=== PATIENT | female | born 1990 | race Caucasian/White ===

== ENCOUNTER 2020-03-17 23:46 | Inpatient (IN) ==
[2020-03-18] MEDS ORDERED: ONDANSETRON 4 MG/2 ML VIAL IV PRN (00:34)
[2020-03-18] MEDS ORDERED: LACTATED RINGERS 500 ML IV PRN (00:34)
[2020-03-18] MEDS ORDERED: BUTORPHANOL 1 MG/ML VIAL IV PRN (00:48)
[2020-03-18] MEDS ORDERED: MEPERIDINE 50 MG/1 ML VIAL IV PRN (00:48)
[2020-03-18] MEDS ORDERED: LACTATED RINGERS 1,000 ML IV SCH ×2 (01:00→08:00)
[2020-03-18 01:37] LABS: Basophils # 0.1 10*3/uL (0.0-0.2); Basophils % 0.5 % (0.0-0.8); Eosinophils # 0.3 10*3/uL (0.0-0.87); Eosinophils % 1.5 % (0.00-10.9); Hemoglobin 10.1 GM/DL (12.0-16.0); Immature Granulocytes % 2.8 %; Immature Granulocytes Absolute 0.52 #; Lymphocytes # 2.8 10*3/uL (1.4-4.0); Lymphocytes % 15.1 % (21.3-54.2); Mean Corpuscular HGB Conc 32.6 GM/DL (32-36); Mean Corpuscular Volume 84.7 FL (87-102); Mean Platelet Volume 10.8 FL (9.6-12.0); Monocytes % 6.7 % (1.7-12.7); Neutrophils % 73.4 % (38.7-73.9); Platelet Count 338 T/CUMM (130-400); Red Blood Count 3.66 MC/CUMM (3.8-5.5); Red Cell Distribution Width 13.6 % (9.3-17.3); White Blood Count 18.4 T/CUMM (4-12)
[2020-03-18 01:52] LABS: Alanine Aminotransferase 37 U/L (13-56); Albumin 2.2 G/DL (3.4-5.0); Alkaline Phosphatase 287 U/L (45-117); Aspartate Amino Transferase 18 U/L (0-37); Bilirubin,Total < 0.39 MG/DL (0.2-1.0); Blood Urea Nitrogen 11 MG/DL (7-18); Calcium 8.8 MG/DL (8.5-10.1); Carbon Dioxide 21 MMOL/L (21-32); Estimated Glom Filtration Rate 135 ML/MIN; Glucose 91 MG/DL (74-106); Osmolality,Calculated 268.1 MOS/KG (273-304); Potassium 3.5 MMOL/L (3.5-5.1); Sodium 135 MMOL/L (136-145); Total Protein 6.6 G/DL (6.4-8.3)
[2020-03-18 04:05] LABS: Eosinophils 1 % (0-10); Lymphocytes 16 % (20-55); Platelet Estimate Increased; Polychromasia Few; Segmented Neutrophils 78 % (50-85); Total Cells Counted 100
[2020-03-18 04:06] LABS: Microcytosis 1+
[2020-03-18 04:08] LABS: Stomatocytes Slight
[2020-03-18 04:09] LABS: Hypochromasia Slight
[2020-03-18] MEDS ORDERED: LACTATED RINGERS 1,000 ML IV ONE (07:51)
[2020-03-18] MEDS ORDERED: ePHEDrine 50 MG/ML VIAL IV PRN (07:51)
[2020-03-18] MEDS ORDERED: FAMOTIDINE 20 MG/2 ML VIAL IV ONE (07:51)
[2020-03-18] MEDS ORDERED: CITRIC ACID/SODIUM CITRATE 30 ML UDCUP PO ONE (07:51)
[2020-03-18] MEDS ORDERED: NALOXONE 0.4 MG/ML VIAL IV PRN (07:52)
[2020-03-18] MEDS ORDERED: PROMETHAZINE 25 MG/1 ML VIAL IM ONE (07:52)
[2020-03-18] MEDS ORDERED: diphenhydrAMINE 50 MG/1 ML VIAL IV PRN ×2 (07:52)
[2020-03-18] MEDS ORDERED: fentaNYL 2 MCG/ROPIV 0.2% EPID 100 ML EPIDURAL SCH (08:00)
[2020-03-18 10:52] LABS: Bilirubin,Urine Negative (Negative); Blood, Urine Negative (Negative); Glucose,Urine (UA) Negative (Negative); Ketones,Urine Negative (Negative); Nitrite,Urine Negative (Negative); Protein,Urine Negative; Urine Appearance Clear (Clear); Urine Color Yellow (Yellow); Urine Specific Gravity 1.005 (1.001-1.035); Urine Urobilinogen 0.2 EU/DL (0.2-1.0)
[2020-03-18] MEDS ORDERED: miSOPROStoL 200 MCG TABLET ONE (11:00)
[2020-03-18] MEDS ORDERED: OXYTOCIN/LR 20 UNIT/1,000 ML BAG IV ONE ×3 (11:00→15:18)
[2020-03-18] MEDS ORDERED: METHYLERGONOVINE 0.2 MG/1 ML AMP ONE (11:01)
[2020-03-18 12:08] LABS: Cord Arterial Blood HCO3 25.2 MMOL/L
[2020-03-18 12:10] LABS: Cord Venous Blood PCO2 39.7 MMHG; Cord Venous Blood PO2 35.7
[2020-03-18] MEDS ORDERED: IBUPROFEN 800 MG TABLET PO ONE (14:40)
[2020-03-18] MEDS ORDERED: ACETAMINOPHEN 325 MG TABLET PO ONE (14:43)
[2020-03-18] MEDS ORDERED: RHO(D) IMMUNE GLOBULIN 300 MCG SYRINGE IM ONE (15:18)
[2020-03-18] MEDS ORDERED: MEASLES/MUMPS/RUBELLA VACCINE 0.5 ML VIAL SUBCUT ONE (15:18)
[2020-03-18] MEDS ORDERED: BENZOCAINE 20%/MENTHOL 0.5% SPRAY 56 GM CAN TOP PRN (15:18)
[2020-03-18] MEDS ORDERED: DIPH/TET/ACEL PERT BOOSTER VACCINE 0.5 ML VIAL IM ONE (15:18)
[2020-03-18] MEDS ORDERED: ACETAMINOPHEN 325 MG TABLET PO PRN (15:18)
[2020-03-18] MEDS ORDERED: WITCH HAZEL PADS 100/JAR TOP PRN (15:18)
[2020-03-18] MEDS ORDERED: LANOLIN 50% CREAM 0.3 OZ TUBE TOP PRN (15:18)
[2020-03-18] MEDS ORDERED: BISACODYL 10 MG SUPP RECTAL PRN (15:18)
[2020-03-18] MEDS ORDERED: HYDROCORTISONE 2.5% RECTAL CREAM 30 GM TUBE TOP PRN (15:18)
[2020-03-18] MEDS: DOCUSATE SODIUM 100 MG CAPSULE PO SCH (21:25)
[2020-03-18] MEDS: IBUPROFEN 800 MG TABLET PO PRN (21:30)
[2020-03-19] MEDS: IBUPROFEN 800 MG TABLET PO PRN ×3 (06:13→19:34)
[2020-03-19 06:17] LABS: Basophils # 0.1 10*3/uL (0.0-0.2); Basophils % 0.5 % (0.0-0.8); Eosinophils # 0.3 10*3/uL (0.0-0.87); Eosinophils % 1.7 % (0.00-10.9); Hematocrit 29.9 VOL% (35.7-47.0); Hemoglobin 9.5 GM/DL (12.0-16.0); Immature Granulocytes % 2.1 %; Immature Granulocytes Absolute 0.32 #; Lymphocytes # 2.5 10*3/uL (1.4-4.0); Lymphocytes % 16.4 % (21.3-54.2); Mean Corpuscular HGB Conc 31.8 GM/DL (32-36); Mean Corpuscular Volume 84.9 FL (87-102); Mean Platelet Volume 10.5 FL (9.6-12.0); Monocytes % 8.2 % (1.7-12.7); Neutrophils % 71.1 % (38.7-73.9); Platelet Count 301 T/CUMM (130-400); Red Blood Count 3.52 MC/CUMM (3.8-5.5); Red Cell Distribution Width 13.8 % (9.3-17.3)
[2020-03-19] MEDS: DOCUSATE SODIUM 100 MG CAPSULE PO SCH ×2 (08:56→21:06)
[2020-03-19] MEDS: oxyCODONE/ACETAMINOPHEN 5-325 MG TABLET PO PRN ×2 (15:48→22:14)
[2020-03-19] MEDS: FERROUS SULFATE 325 MG TABLET PO SCH (21:06)
[2020-03-20] MEDS: oxyCODONE/ACETAMINOPHEN 5-325 MG TABLET PO PRN ×2 (03:49→10:18)
[2020-03-20 07:19] VITALS: BP 104/62
[2020-03-20] MEDS: IBUPROFEN 800 MG TABLET PO PRN (08:19)
[2020-03-20] MEDS: DOCUSATE SODIUM 100 MG CAPSULE PO SCH (08:19)
[2020-03-20] MEDS: FERROUS SULFATE 325 MG TABLET PO SCH (08:19)
== END 2020-03-20 11:50 | disposition home or self-care (01) | DRG 560 ==
LOC: N.LDOUT 23:46 → N.LD 23:48 → N.OB 03-18 15:12
PROVIDERS: ADMIT Obstetrics & Gynecology; ATTEND Obstetrics & Gynecology

== ENCOUNTER 2021-12-30 20:15 | Inpatient (IN) ==
[2021-12-30] MEDS ORDERED: ONDANSETRON 4 MG/2 ML VIAL IV PRN (23:26)
[2021-12-30] MEDS ORDERED: OXYTOCIN/LR 20 UNIT/1,000 ML BAG IV ONE (23:26)
[2021-12-30] MEDS ORDERED: TRANEXAMIC ACID 1,000 MG in SODIUM CHLORIDE 0.9% 100 ML IV PRN (23:26)
[2021-12-30] MEDS ORDERED: LACTATED RINGERS 1,000 ML IV ONE (23:26)
[2021-12-30] MEDS ORDERED: CARBOPROST TROMETHAMINE 250 MCG/ML AMP IM PRN (23:26)
[2021-12-30] MEDS ORDERED: METHYLERGONOVINE 0.2 MG/1 ML AMP IM PRN (23:26)
[2021-12-30] MEDS ORDERED: miSOPROStoL 200 MCG TABLET RECTAL PRN (23:26)
[2021-12-31 00:27] LABS: Alanine Aminotransferase 37 U/L (13-56); Albumin 2.4 G/DL (3.4-5.0); Alkaline Phosphatase 250 U/L (45-117); Aspartate Amino Transferase 21 U/L (0-37); Bilirubin,Total < 0.39 MG/DL (0.20-1.00); Blood Urea Nitrogen 14 MG/DL (7-18); Calcium 8.9 MG/DL (8.5-10.1); Carbon Dioxide 22 MMOL/L (21-32); Chloride 107 MMOL/L (98-107); Glucose 93 MG/DL (74-106); Potassium 3.6 MMOL/L (3.5-5.1); Sodium 136 MMOL/L (136-145); Total Protein 6.4 G/DL (6.4-8.2)
[2021-12-31 00:42] LABS: Basophils # 0.1 10*3/uL (0.0-0.2); Basophils % 0.5 % (0.0-0.8); Eosinophils # 0.3 10*3/uL (0.0-0.87); Eosinophils % 1.3 % (0.00-10.9); Hematocrit 30.1 VOL% (35.7-47.0); Hemoglobin 10.3 GM/DL (12.0-16.0); Immature Granulocytes % 3.2 %; Immature Granulocytes Absolute 0.72 #; Lymphocytes # 3.7 10*3/uL (1.4-4.0); Lymphocytes % 16.5 % (21.3-54.2); Mean Corpuscular HGB Conc 34.2 GM/DL (32-36); Mean Corpuscular Volume 87.2 FL (87-102); Monocytes # 1.5 10*3/uL (0.11-0.8); Monocytes % 6.6 % (1.7-12.7); Neutrophils % 71.9 % (38.7-73.9); Platelet Count 356 T/CUMM (130-400); Red Blood Count 3.45 MC/CUMM (3.8-5.5); Red Cell Distribution Width 12.5 % (9.3-17.3); White Blood Count 22.2 T/CUMM (4-12)
[2021-12-31 01:11] LABS: Eosinophils 1 % (0-10); Lymphocytes 14 % (20-55); Platelet Estimate Adequate; Total Cells Counted 100
[2021-12-31] MEDS: LACTATED RINGERS 1,000 ML IV SCH ×3 (02:29→09:44)
[2021-12-31] MEDS ORDERED: OXYTOCIN/LR 20 UNIT/1,000 ML BAG IV SCH (03:00)
[2021-12-31] MEDS ORDERED: BUTORPHANOL 2 MG/ML VIAL IV PRN (05:38)
[2021-12-31] MEDS ORDERED: PROMETHAZINE 25 MG/1 ML VIAL IM ONE (07:21)
[2021-12-31] MEDS ORDERED: FAMOTIDINE 20 MG/2 ML VIAL IV ONE (07:21)
[2021-12-31] MEDS ORDERED: hydrOXYzine HCL 25 MG/1 ML VIAL IM PRN (07:21)
[2021-12-31] MEDS ORDERED: CITRIC ACID/SODIUM CITRATE 30 ML UDCUP PO ONE (07:21)
[2021-12-31] MEDS ORDERED: ePHEDrine 50 MG/ML VIAL IV PRN (07:21)
[2021-12-31] MEDS ORDERED: diphenhydrAMINE 50 MG/1 ML VIAL IV PRN ×2 (07:21)
[2021-12-31] MEDS ORDERED: NALOXONE 0.4 MG/ML VIAL IV PRN (07:21)
[2021-12-31] MEDS ORDERED: fentaNYL 2 MCG/ROPIV 0.2% EPID 100 ML EPIDURAL SCH (07:30)
[2021-12-31 09:41] LABS: Bilirubin,Urine Negative (Negative); Blood, Urine Negative (Negative); Glucose,Urine (UA) Negative (Negative); Ketones,Urine Negative (Negative); Nitrite,Urine Negative (Negative); Protein,Urine Negative (Negative); RBC,Urine 1 /HPF (0-4); Squamous Epithelial Cell,Urine Occasional /HPF (0-10); Urine Appearance Clear (Clear); Urine Color Straw (Yellow); Urine Specific Gravity 1.015 (1.001-1.035); Urine Urobilinogen 0.2 eU/dL (<2.0)
[2021-12-31] MEDS ORDERED: miSOPROStoL 200 MCG TABLET ONE (10:54)
[2021-12-31] MEDS ORDERED: CARBOPROST TROMETHAMINE 250 MCG/ML AMP IM ONE (10:55)
[2021-12-31] MEDS ORDERED: SODIUM CHLORIDE 0.9% 0 ML IV ONE (10:55)
[2021-12-31] MEDS ORDERED: TRANEXAMIC ACID 1,000 MG/10 ML VIAL ONE (10:55)
[2021-12-31] MEDS ORDERED: METHYLERGONOVINE 0.2 MG/1 ML AMP ONE (10:55)
[2021-12-31 11:31] LABS: Cord Arterial Blood HCO3 21.3 MMOL/L
[2021-12-31 11:33] LABS: Cord Venous Blood HCO3 22.8 MMOL/L; Cord Venous Blood PCO2 40.9 MMHG; Cord Venous Blood PO2 36.2
[2021-12-31] MEDS ORDERED: WITCH HAZEL PADS 100/JAR TOP PRN (17:05)
[2021-12-31] MEDS ORDERED: DIPH/TET/ACEL PERT BOOSTER VACCINE 0.5 ML VIAL IM ONE (17:05)
[2021-12-31] MEDS ORDERED: OXYTOCIN/LR 20 UNIT/1,000 ML BAG IV ONE (17:05)
[2021-12-31] MEDS ORDERED: LANOLIN 50% CREAM 0.3 OZ TUBE TOP PRN (17:05)
[2021-12-31] MEDS ORDERED: BENZOCAINE 20%/MENTHOL 0.5% SPRAY 56 GM CAN TOP PRN (17:05)
[2021-12-31] MEDS ORDERED: BISACODYL 10 MG SUPP RECTAL PRN (17:05)
[2021-12-31] MEDS ORDERED: ACETAMINOPHEN 325 MG TABLET PO PRN (17:05)
[2021-12-31] MEDS ORDERED: HYDROCORTISONE 2.5% RECTAL CREAM 30 GM TUBE TOP PRN (17:05)
[2021-12-31] MEDS ORDERED: RHO(D) IMMUNE GLOBULIN 300 MCG SYRINGE IM ONE (17:05)
[2021-12-31] MEDS ORDERED: MEASLES/MUMPS/RUBELLA VACCINE 0.5 ML VIAL SUBCUT ONE (17:05)
[2021-12-31] MEDS: IBUPROFEN 800 MG TABLET PO PRN (17:17)
[2021-12-31] MEDS: oxyCODONE/ACETAMINOPHEN 5-325 MG TABLET PO PRN ×2 (18:48→22:18)
[2021-12-31] MEDS: DOCUSATE SODIUM 100 MG CAPSULE PO SCH (21:55)
[2022-01-01] MEDS: oxyCODONE/ACETAMINOPHEN 5-325 MG TABLET PO PRN ×4 (04:27→23:34)
[2022-01-01 04:55] LABS: Basophils # 0.1 10*3/uL (0.0-0.2); Basophils % 0.4 % (0.0-0.8); Eosinophils # 0.4 10*3/uL (0.0-0.87); Hematocrit 28.7 VOL% (35.7-47.0); Hemoglobin 9.7 GM/DL (12.0-16.0); Immature Granulocytes % 1.7 %; Immature Granulocytes Absolute 0.32 #; Lymphocytes # 3.9 10*3/uL (1.4-4.0); Lymphocytes % 20.9 % (21.3-54.2); Mean Corpuscular HGB Conc 33.8 GM/DL (32-36); Mean Corpuscular Volume 88.3 FL (87-102); Mean Platelet Volume 10.6 FL (9.6-12.0); Monocytes # 1.1 10*3/uL (0.11-0.8); Monocytes % 5.8 % (1.7-12.7); Neutrophils % 69.2 % (38.7-73.9); Platelet Count 299 T/CUMM (130-400); Red Blood Count 3.25 MC/CUMM (3.8-5.5); Red Cell Distribution Width 12.4 % (9.3-17.3); White Blood Count 18.4 T/CUMM (4-12)
[2022-01-01] MEDS: DOCUSATE SODIUM 100 MG CAPSULE PO SCH ×2 (09:16→21:04)
[2022-01-01] MEDS ORDERED: RHO(D) IMMUNE GLOBULIN 300 MCG SYRINGE IM ONE (15:31)
[2022-01-02] MEDS: DOCUSATE SODIUM 100 MG CAPSULE PO SCH (09:01)
[2022-01-02] MEDS: IBUPROFEN 800 MG TABLET PO PRN (09:03)
[2022-01-02] MEDS: oxyCODONE/ACETAMINOPHEN 5-325 MG TABLET PO PRN (12:14)
[2022-01-02 12:19] VITALS: BP 115/70
== END 2022-01-02 13:12 | disposition home or self-care (01) | DRG 560 ==
LOC: N.LDOUT 20:15 → N.LD 20:17 → N.OB 12-31 16:55
PROVIDERS: ADMIT Obstetrics & Gynecology; ATTEND Obstetrics & Gynecology